=== PATIENT | female | born 1980 | race African-American/Black ===

== ENCOUNTER 2021-09-14 09:47 | Outpatient (CLI) | payer BC | END 2021-09-14 09:48 | disposition home or self-care (01) | LOC: CSHMAMMO 09:47 | PROVIDERS: ATTEND Nurse Practitioner Women's Health | DX: Z12.31 Encounter for screening mammogram for malignant neoplasm of breast (principal) | CPT/HCPCS: 77063; 77067 ==

== ENCOUNTER 2021-09-16 08:18 | Outpatient (CLI) | payer BC | END 2021-09-16 08:19 | disposition home or self-care (01) | LOC: CSHULT 08:18 | PROVIDERS: ATTEND Nurse Practitioner Women's Health | DX: N63.10 Unspecified lump in the right breast, unspecified quadrant (principal) ==

== ENCOUNTER 2024-12-25 07:54 | Outpatient (CLI) | payer BC | END 2024-12-25 07:55 | disposition home or self-care (01) | LOC: CSHULT 07:54 | PROVIDERS: ATTEND Family Medicine | DX: N92.4 Excessive bleeding in the premenopausal period (principal) | CPT/HCPCS: 76856 ==